=== PATIENT | female | born 1975 | race African-American/Black ===

== ENCOUNTER 2017-02-06 19:37 | Emergency (ER) | payer OTHER ==
[~2017-02-06] VITALS: Ht 170.2 cm; Wt 77.1 kg
[2017-02-06] MEDS ORDERED: NKM (19:58)
[2017-02-06 20:00] VITALS: BP 143/80
[2017-02-06] MEDS ORDERED: SUDAFED 12-HOU120 MG PO (20:20)
[2017-02-06] MEDS ORDERED: CORTISPORIN EAR10 ML LEFT EAR (20:20)
[2017-02-06 20:24] VITALS: BP 148/75
--- NOTE | 2017-02-06 21:45 | Emergency Room Report ---
History of Present Illness General Chief Complaint: Earache Source: Patient Present Illness HPI The patient 42-year-old female presenting with left ear pain. Symptoms began 2 weeks prior for no known reason. It is now described as a 2/10 dull ache and does not radiate. No known provoking or relieving factors. She also describes hearing the sound as "whoosh" in the left ear. She denies any other symptoms including nausea, vomiting, fever, chills, headache, dizziness, blurred vision Allergies: Coded Allergies: No Known Allergies (Unverified , 02/06/17) Patient History Past Medical History: see triage record Pertinent Family History: none Last Menstrual Period: December Reviewed Nursing Documentation: PMH: Agreed, PSxH: Agreed Nursing Documentation-PMH Past Medical History: No Stated History Review of Systems All Other Systems: negative except mentioned in HPI Physical Exam Vital Signs Date Time Temp Pulse Resp B/P Pulse Ox O2 Delivery O2 Flow Rate FiO2 02/06/17 19:54 98.2 78 16 143/80 100 Room Air Sp02 EP Interpretation: reviewed, normal General Appearance: no apparent distress, alert, GCS 15, non-toxic Head: normocephalic, atraumatic Eyes: bilateral eye PERRL, bilateral eye normal inspection ENT: normal pharynx, no angioedema, normal voice, other - L EAC mild white exudate noted. TM intact. No bulging Neck: full range of motion, supple/symm/no masses Musculoskeletal: back normal, gait/station normal, normal range of motion, non- tender Neurologic: alert, oriented x3, responsive, motor strength/tone normal, sensory intact, speech normal Psychiatric: judgement/insight normal, memory normal, mood/affect normal, no suicidal/homicidal ideation Skin: normal color, no rash, warm/dry, well hydrated Lymphatic: no adenopathy Medical Decision Making PA Attestation Dr. Claros is my supervising physician. Patient management was discussed with my supervising physician Diagnostic Impression: Primary Impression: Otitis externa, acute Qualified Codes: H60.502 - Unspecified acute noninfective otitis externa, left ear ER Course The patient is a 42-year-old female presenting with left ear pain and change in hearing Differential diagnosis considered not limited to: Otitis externa, otitis media, Mnire's disease, tympanic membrane rupture, among others Physical exam shows mild white exudate to the external auditory canal. Tympanic membrane is intact. No bulging or erythema. No cervical lymphadenopathy The patient will be discharged home with a prescription for Cortisporin and Sudafed. ER precautions are given. She was told she needs to followup with her primary doctor and obtain referral for ENT and/or blow torch burner Last Vital Signs Date Time Temp Pulse Resp B/P Pulse Ox O2 Delivery O2 Flow Rate FiO2 02/06/17 20:24 98.2 74 18 148/75 100 Room Air Status: improved Disposition: HOME, SELF-CARE Condition: Improved Scripts Pseudoephedrine Hcl (SUDAFED 12-HOUR) 120 Mg Tablet.er 120 MG PO DAILY, #10 TAB Prov: SIVA MOLINA 02/06/17 Neomycin/Polymyxin B Sulf/Hc* (CORTISPORIN EAR SOLUTION*) 10 Ml Solution 4 DROP LEFT EAR QID, #10 ML 0 Refills Prov: SIVA MOLINA 02/06/17 Referrals: [facility] (PCP) Patient Instructions: Otitis Externa Additional Instructions: I discussed my findings with the patient. All questions and concerns have been answered. Treatment and medication compliance have been addressed. I advised the patient that they need to follow up with PMD in 3-5 days. Return to ED if symptoms worsen, new symptoms arise, or if needed for any reason. Patient verbalized understanding of discharge instructions. Please follow up with primary doctor to obtain referral for ENT or blow torch burner SIVA MOLINA Feb 06, 2017 21:45
== END 2017-02-06 20:24 | disposition home or self-care (01) ==
LOC: EMR 20:18
DX: H60.502 Unspecified acute noninfective otitis externa, left ear (principal)
CPT/HCPCS: 99284

== ENCOUNTER 2017-06-10 08:06 | Emergency (ER) | payer OTHER ==
[~2017-06-10] VITALS: Ht 170.2 cm; Wt 79.4 kg
[~2017-06-10 08:06] MED LIST: CORTISPORIN EAR10 ML LEFT EAR; NKM; SUDAFED 12-HOU120 MG PO
[2017-06-10 09:38] VITALS: BP 131/89
[2017-06-10] MEDS ORDERED: IBUPROFEN600 MG ORAL (09:41)
[2017-06-10] MEDS ORDERED: TRAMADOL HCL50 MG ORAL (09:41)
[2017-06-10 10:01] VITALS: BP 131/89
--- NOTE | 2017-06-10 10:03 | Emergency Room Report ---
History of Present Illness General Chief Complaint: Pain Source: Patient Present Illness HPI 42-year-old female presents ED complaining of left hip pain. States pain has been there for approximately 2 months getting progressively worse. Denies trauma. Throbbing, /, nonradiating. Worse with walking, internal/external rotation. Patient states maye 4 years ago she had x-rays of her left hip for similar pain and was told that she arthritis. Patient never did seek followup after that. Patient states the pain did resolve. No other aggravating relieving factors. Denies any other associated symptoms Allergies: Coded Allergies: No Known Allergies (Unverified , 02/06/17) Patient History Past Surgical History: none Pertinent Family History: none Social History: Denies: smoking, alcohol use, drug use Last Menstrual Period: 06/06/17 Now: No Immunizations: UTD Reviewed Nursing Documentation: PMH: Agreed, PSxH: Agreed Nursing Documentation-PMH Past Medical History: No History, Except For Review of Systems All Other Systems: negative except mentioned in HPI Physical Exam Vital Signs Date Time Temp Pulse Resp B/P (MAP) Pulse Ox O2 Delivery O2 Flow Rate FiO2 06/10/17 08:08 98.2 75 18 131/89 100 Room Air Sp02 EP Interpretation: reviewed, normal General Appearance: no apparent distress, alert, GCS 15, non-toxic Head: normocephalic Eyes: bilateral eye normal inspection, bilateral eye PERRL ENT: normal ENT inspection Neck: normal inspection Respiratory: normal inspection Cardiovascular #1: normal inspection Gastrointestinal: normal inspection Rectal: deferred Genitourinary: no CVA tenderness Musculoskeletal: normal range of motion - TTP with internal/external rotation, tender - L hip Neurologic: alert, oriented x3, responsive, motor strength/tone normal, sensory intact, speech normal Psychiatric: normal inspection Skin: normal inspection Lymphatic: normal inspection Medical Decision Making Diagnostic Impression: Primary Impression: Hip osteoarthritis Qualified Codes: M16.12 - Unilateral primary osteoarthritis, left hip ER Course Hospital Course 42-year-old female presents ED complaining of left hip pain Differential diagnoses include: Fracture, dislocation, sprain, contusion Clinical course Patient placed on stretcher. After initial history and physical, I ordered xrays of L hip Xrays prelim read shows no acute fracture/dislocation. however significant joint space narrow suggestive of osteoarthritis I discussed findings with the patient. Initial treatment will include ice, rest , pain medication. Patient will be to followup with her PMD for further options such as physical therapy etc. Patient states she will have her PMD referred her to orthopedics Diagnosis - hip osteoarthritis Stable and discharged to home with prescription for Motrin, Tramadol. apply ice , keep elevated. weight bear as tolerated. Followup with PMD/ortho. Return to ED if symptoms recur or worsen Other X-Ray Diagnostic Results Other X-Ray Diagnostic Results : X-Ray ordered: L hip # of Views/Limited Vs Complete: 2 View Indication: Pain EP Interpretation: Yes Interpretation: no dislocation, no soft tissue swelling, no fractures, other - DJD Impression: Other - osteoarthritis Electronically Signed by: Electronically signed by Marc Yates MD Last Vital Signs Date Time Temp Pulse Resp B/P (MAP) Pulse Ox O2 Delivery O2 Flow Rate FiO2 06/10/17 09:38 98.2 75 18 131/89 100 Room Air Status: improved Disposition: HOME, SELF-CARE Condition: Stable Scripts Tramadol Hcl* (ULTRAM*) 50 Mg Tablet 50 MG ORAL Q6H Y for For Pain, #30 TAB 0 Refills Prov: MARC YATES M.D. 06/10/17 Ibuprofen* (MOTRIN*) 600 Mg Tablet 600 MG ORAL Q8H Y for For Pain, #30 TAB 0 Refills Prov: MARC YATES M.D. 06/10/17 Patient Instructions: Osteoarthritis MARC YATES M.D. Jun 10, 2017 10:03
--- NOTE | 2017-06-11 10:46 | Diagnostic Imaging Report ---
Indication: Reason For Exam: PAIN Technique: 2 views of the left hip Comparison: none Findings: No acute fractures. No dislocations. There are degenerative proliferative changes of the left acetabulum and mild degenerative joint space narrowing Impression: Degenerative changes No acute bony trauma
== END 2017-06-10 10:04 | disposition home or self-care (01) ==
LOC: EMR 09:00
DX: M16.12 Unilateral primary osteoarthritis, left hip (principal)
CPT/HCPCS: 73502; 99284

== ENCOUNTER 2017-10-11 10:29 | Emergency (ER) | payer OTHER ==
[~2017-10-11] VITALS: Ht 170.2 cm; Wt 76.2 kg
[~2017-10-11 10:29] MED LIST changes: +IBUPROFEN600 MG ORAL; +TRAMADOL HCL50 MG ORAL
[2017-10-11 10:50] VITALS: BP 132/84
[2017-10-11 12:14] LABS: BILIRUBIN, URINE NEGATIVE (NEGATIVE); COLOR,URINE PALE YELLOW; GLUCOSE, URINE (UA) NEGATIVE (NEGATIVE); KETONES,URINE NEGATIVE (NEGATIVE); LEUKOCYTE ESTERASE ,URINE NEGATIVE (NEGATIVE); NITRITE,URINE NEGATIVE (NEGATIVE); PH,URINE 7 (4.5-8.0); PROTEIN,URINE NEGATIVE (NEGATIVE); UROBILINOGEN,URINE NORMAL MG/DL (0.0-1.0)
[2017-10-11 12:16] LABS: APPEARANCE,URINE CLEAR
[2017-10-11 12:36] LABS: ANION GAP 9 mmol/L (5-15); BLOOD UREA NITROGEN 10 mg/dL (7-18); CALCIUM 9.2 MG/DL (8.5-10.1); CARBON DIOXIDE 27 MMOL/L (21-32); CHLORIDE 103 MMOL/L (98-107); CREATININE 0.7 MG/DL (0.55-1.30); POTASSIUM 3.6 MMOL/L (3.5-5.1); SODIUM 139 MMOL/L (136-145)
[2017-10-11 12:37] LABS: BASOPHILS % (AUTO) 2.5 % (0.0-2.0); HEMOGLOBIN 14.8 G/DL (12.0-16.0); LYMPHOCYTES % (AUTO) 41.7 % (20.0-45.0); MEAN CORPUSCULAR VOLUME 83 FL (80-99); MONOCYTES % (AUTO) 6.9 % (1.0-10.0); NEUTROPHILS % (AUTO) 46.8 % (45.0-75.0); PLATELET COUNT 356 K/UL (150-450); RED BLOOD COUNT 5.17 M/UL (4.20-5.40); RED CELL DISTRIBUTION WIDTH 12.2 % (11.6-14.8); WHITE BLOOD COUNT 4.5 K/UL (4.8-10.8)
[2017-10-11 12:41] LABS: ALANINE AMINOTRANSFERASE 17 U/L (12-78); ALBUMIN 4.3 G/DL (3.4-5.0); ALKALINE PHOSPHATASE 47 U/L (46-116); ASPARTATE AMINO TRANSFERASE 13 U/L (15-37); BILIRUBIN,TOTAL 0.4 MG/DL (0.2-1.0); CHOLESTEROL 209 MG/DL (< 200); HDL CHOLESTEROL 77 MG/DL (40-60); TRIGLYCERIDES 64 MG/DL (30-150)
--- NOTE | 2017-10-11 13:22 | Emergency Room Report ---
History of Present Illness General Chief Complaint: Headache Source: Patient Present Illness HPI The patient states that she has been getting recurrent sharp pains in her head. She states she notices the symptoms at nighttime when she is trying to go to sleep. She states the pain is sharp and radiates to her head. She states during the day she feels fine when she is at work. She states she believes this is because she is distracted. She states that then at night she will lay down and have these symptoms. She states she also got some pain in her right wrist and right chest and left leg last night. She states she is afraid to go to sleep because she is afraid she will . She is concerned that she is going to have a stroke. She denies weakness. She denies tingling or numbness. She denies blurry vision. She denies neck pain. She denies recent illness. She denies trauma. She denies fever or chills. She denies nausea or vomiting. She's had no other symptoms. Allergies: Coded Allergies: No Known Allergies (Unverified , 02/06/17) Patient History Past Medical History: see triage record, migraines Social History: Denies: smoking, alcohol use, drug use Last Menstrual Period: September Reviewed Nursing Documentation: PMH: Agreed; PSxH: Agreed Nursing Documentation-PMH Past Medical History: No Stated History Hx Neurological Problems: Yes - MIGRAINE Review of Systems All Other Systems: negative except mentioned in HPI Physical Exam Vital Signs Date Time Temp Pulse Resp B/P (MAP) Pulse Ox O2 Delivery O2 Flow Rate FiO2 10/11/17 10:40 98.4 87 18 132/84 100 Room Air 98.4 Sp02 EP Interpretation: reviewed, normal General Appearance: no apparent distress, alert, GCS 15, non-toxic Head: normocephalic, atraumatic Eyes: bilateral eye normal inspection, bilateral eye PERRL ENT: normal ENT inspection, hearing grossly normal, normal pharynx, no angioedema, normal voice, TMs + canals normal, uvula midline, moist mucus membranes Neck: full range of motion, supple/symm/no masses Respiratory: chest non-tender, lungs clear, normal breath sounds, speaking full sentences Cardiovascular #1: regular rate, rhythm, no edema Gastrointestinal: normal bowel sounds, non tender, soft, non-distended, no guarding, no rebound Rectal: deferred Musculoskeletal: back normal, gait/station normal, normal range of motion, non- tender Neurologic: alert, oriented x3, responsive, motor strength/tone normal, sensory intact, speech normal Psychiatric: judgement/insight normal, memory normal, mood/affect normal, no suicidal/homicidal ideation Skin: normal color, no rash, warm/dry, well hydrated Medical Decision Making Diagnostic Impression: Primary Impression: Headache ER Course This patient has symptoms that do not fall into any specific action or category. She has had sharp pains in her head and random pains occasionally in her body. She does not have these symptoms during the day. Possibly these could be migraines. The patient is very distraught and seems anxious. Although I had very low suspicion for any concerning etiology and I suspect that this is anxiety related, I did obtain basic laboratory workup to include a CBC, CMP, cardiac enzymes and urinalysis. These were all unremarkable. I also obtained a CT of the head which is also unremarkable. I educated the patient that I did not identify an emergency medical condition. The patient is instructed to follow-up with her primary care physician for further evaluation. The patient is given close return precautions and follow-up instructions. Laboratory Tests Test 10/11/17 12:05 10/11/17 12:12 Urine Color Pale yellow Urine Appearance Clear Urine pH 7 (4.5-8.0) Urine Specific [place] 1.010 (1.005-1.035) Urine Protein Negative (NEGATIVE) Urine Glucose (UA) Negative (NEGATIVE) Urine Ketones Negative (NEGATIVE) Urine Occult Blood Negative (NEGATIVE) Urine Nitrite Negative (NEGATIVE) Urine Bilirubin Negative (NEGATIVE) Urine Urobilinogen Normal MG/DL (0.0-1.0) Urine Leukocyte Esterase Negative (NEGATIVE) White Blood Count 4.5 K/UL (4.8-10.8) L Red Blood Count 5.17 M/UL (4.20-5.40) Hemoglobin 14.8 G/DL (12.0-16.0) Hematocrit 43.0 % (37.0-47.0) Mean Corpuscular Volume 83 FL (80-99) Mean Corpuscular Hemoglobin 28.5 PG (27.0-31.0) Mean Corpuscular Hemoglobin Concent 34.3 G/DL (32.0-36.0) Red Cell Distribution Width 12.2 % (11.6-14.8) Platelet Count 356 K/UL (150-450) Mean Platelet Volume 6.1 FL (6.5-10.1) L Neutrophils (%) (Auto) 46.8 % (45.0-75.0) Lymphocytes (%) (Auto) 41.7 % (20.0-45.0) Monocytes (%) (Auto) 6.9 % (1.0-10.0) Eosinophils (%) (Auto) 2.0 % (0.0-3.0) Basophils (%) (Auto) 2.5 % (0.0-2.0) H Prothrombin Time 10.0 SEC (9.30-11.50) Prothrombin Time INR 1.0 (0.9-1.1) PTT 26 SEC (23-33) Sodium Level 139 MMOL/L (136-145) Potassium Level 3.6 MMOL/L (3.5-5.1) Chloride Level 103 MMOL/L (98-107) Carbon Dioxide Level 27 MMOL/L (21-32) Anion Gap 9 mmol/L (5-15) Blood Urea Nitrogen 10 mg/dL (7-18) Creatinine 0.7 MG/DL (0.55-1.30) Estimate Glomerular Filtration Rate > 60 mL/min (>60) Glucose Level 112 MG/DL (74-106) H Calcium Level 9.2 MG/DL (8.5-10.1) Total Bilirubin 0.4 MG/DL (0.2-1.0) Aspartate Amino Transferase (AST) 13 U/L (15-37) L Alanine Aminotransferase (ALT) 17 U/L (12-78) Alkaline Phosphatase 47 U/L (46-116) Troponin I 0.000 ng/mL (0.000-0.056) Total Protein 8.5 G/DL (6.4-8.2) H Albumin 4.3 G/DL (3.4-5.0) Globulin 4.2 g/dL Albumin/Globulin Ratio 1.0 (1.0-2.7) Triglycerides Level 64 MG/DL (30-150) Cholesterol Level 209 MG/DL (< 200) H LDL Cholesterol 126 mg/dL (<100) H HDL Cholesterol 77 MG/DL (40-60) H Cholesterol/HDL Ratio 2.7 (3.3-4.4) L Human Chorionic Gonadotropin, Qual Negative EKG Diagnostic Results Rate: normal Rhythm: NSR ST Segments: no acute changes Rhythm Strip Diag. Results EP Interpretation: yes Rate: 70's Rhythm: NSR, no PVC's, no ectopy CT/MRI/US Diagnostic Results CT/MRI/US Diagnostic Results : Imaging Test Ordered: CT head Impression No bleed, mass effect, edema or acute findings identified. See official report. Last Vital Signs Date Time Temp Pulse Resp B/P (MAP) Pulse Ox O2 Delivery O2 Flow Rate FiO2 10/11/17 10:50 98.4 87 18 132/84 100 Room Air 98.4 Status: improved Disposition: HOME, SELF-CARE Condition: Improved Referrals: [facility] (PCP) Patient Instructions: General Headache Without Cause THERESA DEL RIO D.O. Oct 11, 2017 13:22
[2017-10-11 14:10] VITALS: BP 116/70
--- NOTE | 2017-10-12 09:37 | Diagnostic Imaging Report ---
Indication: Headache Technique: Continuous helical CT scanning of the head was performed utilizing automated exposure control without intravenous contrast material. Axial and coronal reconstructions were obtained. Comparison: None CT dose: Total DLP 1290 mGycm; CTDI vol 70.4 mGy Findings: There is no acute intracranial hemorrhage, mass effect or cortical edema. The ventricles, cisterns and sulci are within normal limits. The posterior fossa and fourth ventricle are unremarkable. Sellar and suprasellar regions are grossly unremarkable. Visualized mastoid air cells and paranasal sinuses are unremarkable. No focal lesions of the bony calvarium or soft tissues of the scalp are seen. Impression: No evidence of acute intracranial hemorrhage, mass effect or cortical edema. MRI may be obtained for more sensitive evaluation as clinically indicated. The CT scanner at [facility] is accredited by the [employer] and the scans are performed using protocols designed to limit radiation exposure to as low as reasonably achievable to attain images of sufficient resolution adequate for diagnostic evaluation.
== END 2017-10-11 14:14 | disposition home or self-care (01) ==
LOC: EMR 11:11
DX: R51 Headache (principal)
CPT/HCPCS: 36415; 70450; 80053; 80061; 81003; 84484; 84703; 85025; 85610; 85730; 93005; 99284

== ENCOUNTER 2017-12-02 11:47 | Emergency (ER) | payer OTHER ==
[~2017-12-02] VITALS: Ht 170.2 cm; Wt 80.7 kg
--- NOTE | 2017-12-02 12:14 | Emergency Room Report ---
History of Present Illness General Chief Complaint: Abdominal Pain Source: Patient Present Illness HPI 42-year-old female presents with acute onset of right lower quadrant pain at 3 AM, possibly 9 hours ago. Patient states pain was 10 out of 10, maximum at onset. Was associated with significant belching, were patient continued to burp repeatedly. No associated nausea, vomiting, diarrhea. Patient has had 2 bowel movements since. Previous surgical history includes myomectomy but no other surgery. Denies history of gallstones, kidney stones. Endorses polyuria , but without dysuria. Denies any other medical problems. Has not taken any medication for pain. She got up and tried to go to work but was still having the pain subsided to come to ER. Allergies: Coded Allergies: No Known Allergies (Unverified , 02/06/17) Patient History Past Medical History: none Past Surgical History: other - myeomectomy Pertinent Family History: none Social History: Denies: smoking, alcohol use, drug use Last Menstrual Period: 10/28/17 Now: No Immunizations: UTD Reviewed Nursing Documentation: PMH: Agreed; PSxH: Agreed Nursing Documentation-PMH Past Medical History: No History, Except For Hx Gastrointestinal Problems: Yes - GERD Hx Neurological Problems: Yes - MIGRAINE Review of Systems All Other Systems: negative except mentioned in HPI Physical Exam Vital Signs Date Time Temp Pulse Resp B/P (MAP) Pulse Ox O2 Delivery O2 Flow Rate FiO2 12/02/17 11:57 99.0 83 16 127/82 100 Room Air 99.0 Sp02 EP Interpretation: reviewed, normal General Appearance: normal inspection, well appearing, no apparent distress, alert, GCS 15, non-toxic Head: normocephalic, atraumatic Eyes: bilateral eye PERRL, bilateral eye EOMI ENT: normal ENT inspection, hearing grossly normal, normal pharynx, no angioedema, normal voice, TMs + canals normal, uvula midline, moist mucus membranes Neck: normal inspection, full range of motion, supple, thyroid normal, no meningismus, no bony tend Respiratory: normal inspection, lungs clear, normal breath sounds, no rhonchi, no respiratory distress, no retraction, no accessory muscle use, no wheezing, speaking full sentences Cardiovascular #1: regular rate, rhythm, no edema, no JVD, normal capillary refill Gastrointestinal: normal inspection, normal bowel sounds, non tender, soft, no mass, no peritonitis, non-distended, no guarding, no hernia, no pulsatile mass Genitourinary: no CVA tenderness Musculoskeletal: normal inspection, back normal, normal range of motion, no calf tenderness, pelvis stable, Patti's Sign negative Neurologic: normal inspection, alert, oriented x3, responsive, buckle stringer III-XII nml as tested, motor strength/tone normal, cerebellar normal, normal gait, speech normal Psychiatric: normal inspection, judgement/insight normal, mood/affect normal, no suicidal/homicidal ideation, no delusions Skin: normal inspection, normal color, no rash Lymphatic: normal inspection, no adenopathy Medical Decision Making Diagnostic Impression: Primary Impression: Fibroids Qualified Codes: D25.9 - Leiomyoma of uterus, unspecified ER Course VSS, afebrile no ttp even on deep palpation of RLQ Given pain maximum at onset, possible ovarian cyst rupture DDx also includes appy, jerilyn, colitis, gastroenteritis Labs unremarkable for acute process to explain symptoms On verbal report from US tech - multiple fibroids, large right ovarian cyst Possible pain d/t ruptured cyst +/- multiple fibroids Will advise PMD followup for multiple fibroids ER course: Patient has remained stable during ED stay. Disposition: Patient is to be discharged to home. Prescriptions given are motrin PRN Patient is instructed to follow up with their primary care doctor within 5 days. Strict return precautions discussed with patient such as fever, chills, worsening/severe pain, nausea, vomiting, which may indicate severe illness. Patient verbalizes understanding and agrees with plan. Please note that this Emergency Department Report was dictated using [employer] specialist technology software, occasionally this can lead to erroneous entry secondary to interpretation by the dictation equipment Last Vital Signs Date Time Temp Pulse Resp B/P (MAP) Pulse Ox O2 Delivery O2 Flow Rate FiO2 12/02/17 11:57 99.0 83 16 127/82 100 Room Air 99.0 Status: improved Disposition: HOME, SELF-CARE MARIEL MAY M.D. Dec 02, 2017 12:14
[2017-12-02] MEDS ORDERED: Ketorolac 30mg Inj IV ONE (12:15)
[2017-12-02 12:30] LABS: APPEARANCE,URINE CLEAR; BILIRUBIN, URINE NEGATIVE (NEGATIVE); COLOR,URINE PALE YELLOW; GLUCOSE, URINE (UA) NEGATIVE (NEGATIVE); KETONES,URINE NEGATIVE (NEGATIVE); LEUKOCYTE ESTERASE ,URINE NEGATIVE (NEGATIVE); NITRITE,URINE NEGATIVE (NEGATIVE); PH,URINE 8 (4.5-8.0); PROTEIN,URINE NEGATIVE (NEGATIVE); UROBILINOGEN,URINE NORMAL MG/DL (0.0-1.0)
[2017-12-02 12:42] VITALS: BP 113/69
[2017-12-02 12:58] LABS: BASOPHILS % (AUTO) 2.6 % (0.0-2.0); EOSINOPHILS % (AUTO) 1.5 % (0.0-3.0); HEMATOCRIT 39.1 % (37.0-47.0); HEMOGLOBIN 12.6 G/DL (12.0-16.0); LYMPHOCYTES % (AUTO) 51.1 % (20.0-45.0); MEAN CORPUSCULAR VOLUME 82 FL (80-99); MONOCYTES % (AUTO) 8.1 % (1.0-10.0); NEUTROPHILS % (AUTO) 36.7 % (45.0-75.0); PLATELET COUNT 351 K/UL (150-450); RED BLOOD COUNT 4.76 M/UL (4.20-5.40); RED CELL DISTRIBUTION WIDTH 11.9 % (11.6-14.8); WHITE BLOOD COUNT 4.5 K/UL (4.8-10.8)
[2017-12-02 13:26] LABS: ANION GAP 10 mmol/L (5-15); BLOOD UREA NITROGEN 10 mg/dL (7-18); CALCIUM 8.8 MG/DL (8.5-10.1); CARBON DIOXIDE 25 MMOL/L (21-32); CHLORIDE 102 MMOL/L (98-107); CREATININE 0.8 MG/DL (0.55-1.30); POTASSIUM 3.6 MMOL/L (3.5-5.1); SODIUM 137 MMOL/L (136-145)
[2017-12-02 13:30] LABS: ALANINE AMINOTRANSFERASE 27 U/L (12-78); ALBUMIN 3.8 G/DL (3.4-5.0); ALKALINE PHOSPHATASE 44 U/L (46-116); ASPARTATE AMINO TRANSFERASE 16 U/L (15-37); BILIRUBIN,TOTAL 0.2 MG/DL (0.2-1.0)
[2017-12-02] MEDS ORDERED: IBUPROFEN600 MG ORAL (13:42)
[2017-12-02 14:14] VITALS: BP 113/69
--- NOTE | 2017-12-02 15:55 | Diagnostic Imaging Report ---
Indication: Pelvic pain, right lower quadrant pain, negative test. History of myomectomy Technique: Transabdominal and transvaginal images Comparison: none Findings: It is measures 11 cm length by 6.1 cm AP. Endometrium measures 6 mm in thickness. Multiple myometrial subserosal fibroids are demonstrated, largest in the upper uterine segment measuring 4.2 cm in diameter. Left ovary measures 2.7 cm in length. Right ovary measures 5.5 cm in length. A lesion is seen in the right adnexa measuring 4 cm with appearance consistent with simple cyst. There is a small amount of free cul-de-sac fluid Impression: Multiple uterine fibroids, consistent with known history of such Simple cyst in the right adnexa is almost certainly benign. In a woman of reproductive age, no imaging follow-up is required. In a post-menopausal woman, this should be followed yearly with ultrasound. Recommend pelvic ultrasound in 12 months. Free cul-de-sac fluid, presumably physiologic Recommendations for adnexal cyst follow-up per Society of Radiologists in Ultrasound 2009 consensus statement on management of asymptomatic and ovarian and other adnexal cysts (Baeza et al., Radiology 2010 256: 943-54).
== END 2017-12-02 14:16 | disposition home or self-care (01) ==
LOC: EMR 13:03
DX: D25.2 Subserosal leiomyoma of uterus (principal); K21.9 Gastro-esophageal reflux disease without esophagitis
CPT/HCPCS: 36415; 76830; 76856; 80053; 81003; 81025; 83690; 85025; 96374; 99283; J1885

== ENCOUNTER 2019-05-31 07:44 | Emergency (ER) | payer OTHER ==
[~2019-05-31] VITALS: Ht 170.2 cm; Wt 77.1 kg
--- NOTE | 2019-05-31 08:04 | NUR ---
ED Nurse Note: Patient walked into ED from home c/o pain left lower back radiating to her left thigh 10/10 since last night. Patient denies injury. Placed patient in hospital gown.
[2019-05-31 08:06] VITALS: BP 121/74
--- NOTE | 2019-05-31 08:11 | NUR ---
ED Nurse Note: ERMD at bedside
[2019-05-31] MEDS ORDERED: Ketorolac 60mg Inj IM ONE (08:15)
--- NOTE | 2019-05-31 08:17 | Emergency Room Report ---
History of Present Illness General Chief Complaint: Lower Back Pain or Injury Source: Patient Present Illness HPI The patient slept on a couch 2 nights ago. After waking up she has had pain in her left lower back that radiates down into her hip and leg area. She also has a history of degenerative arthritis of her left hip. She tried taking 2 Motrin yesterday and they helped a little bit. The pain comes in spasms. When it does hit it is 10/10. She feels it radiating down to her left leg. She denies any dysuria but had difficulty sitting on the toilet to urinate today. She does not believe she is her last menstruation was May 05. Patient has no oncologic problems not diabetic, no blood thinners, no IV drug use. No fevers, chills, chest pain, palpitations, nausea, vomiting, diarrhea, dysuria , abdominal pain, shortness of breath, rashes, stress, headache. She states it was suggested she have a hip replacement. 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 Now: No Reviewed Nursing Documentation: PMH: Agreed; PSxH: Agreed Nursing Documentation-PMH Past Medical History: No History, Except For Hx Gastrointestinal Problems: Yes - GERD Hx Neurological Problems: Yes - MIGRAINE Review of Systems All Other Systems: negative except mentioned in HPI Physical Exam Vital Signs Date Time Temp Pulse Resp B/P (MAP) Pulse Ox O2 Delivery O2 Flow Rate FiO2 05/31/19 07:49 97.9 100 18 121/74 (90) 97 Room Air Sp02 EP Interpretation: reviewed, normal General Appearance: well appearing, no apparent distress, GCS 15 Head: normocephalic Eyes: bilateral eye normal inspection, bilateral eye PERRL, bilateral eye EOMI ENT: moist mucus membranes Neck: full range of motion, supple Respiratory: lungs clear Cardiovascular #1: regular rate, rhythm Cardiovascular #2: 2+ radial (R), 2+ dorsalis pedis (L) Gastrointestinal: normal inspection Genitourinary: no CVA tenderness Musculoskeletal: gait/station normal, digits/nails normal, no calf tenderness, tenderness - lumbar area L sided - paraspinous muscles, no bone tenderness. SLR causes muscle spasms, not radiate to leg Neurologic: alert, motor strength/tone normal, DTRs symmetric, oriented x3, sensory intact, cerebellar normal Psychiatric: mood/affect normal Skin: normal color, no rash, warm/dry Medical Decision Making Diagnostic Impression: Primary Impression: Low back strain Qualified Codes: S39.012A - Strain of muscle, fascia and tendon of lower back , initial encounter Additional Impression: Hip osteoarthritis Qualified Codes: M16.12 - Unilateral primary osteoarthritis, left hip ER Course With low back pain without trauma and no red flag symptoms. Imaging is not indicated at this time. She has muscle spasm. This is also set up in part by the osteoarthritis. The patient will receive a shot of Toradol and Tylenol. She drove herself here. Urinalysis will be checked. Urinalysis negative Patient improved with treatment. Still with pain but improved. Discussed assessment and findings with patient. Discussed treatment plan. Patient stable for outpatient observation and treatment. Laboratory Tests Test 05/31/19 08:24 Urine Color Pale yellow Urine Appearance Clear Urine pH 5 (4.5-8.0) Urine Specific [place] 1.015 (1.005-1.035) Urine Protein 2+ (NEGATIVE) H Urine Glucose (UA) Negative (NEGATIVE) Urine Ketones Negative (NEGATIVE) Urine Blood Negative (NEGATIVE) Urine Nitrite Negative (NEGATIVE) Urine Bilirubin Negative (NEGATIVE) Urine Urobilinogen Normal MG/DL (0.0-1.0) Urine Leukocyte Esterase Negative (NEGATIVE) Urine RBC 0 /HPF (0 - 2) Urine WBC 0 /HPF (0 - 2) Urine Squamous Epithelial Cells Occasional /LPF Urine Bacteria None /HPF (NONE) Urine HCG, Qualitative Negative (NEGATIVE) Last Vital Signs Date Time Temp Pulse Resp B/P (MAP) Pulse Ox O2 Delivery O2 Flow Rate FiO2 05/31/19 09:39 98.0 101 18 125/75 98 Room Air Status: improved Disposition: HOME, SELF-CARE Condition: Improved Scripts Tramadol Hcl* (ULTRAM*) 50 Mg Tablet 50 MG ORAL Q6H PRN for For Pain, #6 TAB 0 Refills Prov: Samym Mojica MD 05/31/19 Methocarbamol* (ROBAXIN-500*) 500 Mg Tablet 500 MG ORAL TID PRN for For Pain, #10 TAB 0 Refills Prov: Sammy Mojica MD 05/31/19 Ibuprofen* (MOTRIN*) 600 Mg Tablet 600 MG ORAL Q6H PRN for For Pain, #20 TAB 0 Refills Prov: Sammy Mojica MD 05/31/19 Sammy Mojica MD May 31, 2019 08:17
[2019-05-31] MEDS ORDERED: ROBAXIN-500MG ORAL (08:19)
[2019-05-31] MEDS ORDERED: IBUPROFEN600 MG ORAL (08:19)
[2019-05-31] MEDS ORDERED: TRAMADOL HCL50 MG ORAL (08:19)
--- NOTE | 2019-05-31 08:26 | NUR ---
ED Nurse Note: Urine sample sent down to lab.
[2019-05-31 08:38] LABS: APPEARANCE,URINE CLEAR; BILIRUBIN, URINE NEGATIVE (NEGATIVE); COLOR,URINE PALE YELLOW; GLUCOSE, URINE (UA) NEGATIVE (NEGATIVE); KETONES,URINE NEGATIVE (NEGATIVE); LEUKOCYTE ESTERASE ,URINE NEGATIVE (NEGATIVE); NITRITE,URINE NEGATIVE (NEGATIVE); PH,URINE 5 (4.5-8.0); PROTEIN,URINE 2+ (NEGATIVE); UROBILINOGEN,URINE NORMAL MG/DL (0.0-1.0)
[2019-05-31 09:39] VITALS: BP 125/75
--- NOTE | 2019-05-31 09:39 | NUR ---
ER DISCHARGE NOTE: Patient is cleared to be discharged per ERMD, pt is aox4, on room air, with stable vital signs. pt was given dc and prescription instructions, pt was able to verbalize understanding, pt id band removed without complications. pt is able to ambulate with steady gait. pt took all belongings.
== END 2019-05-31 09:39 | disposition home or self-care (01) ==
LOC: EMR 08:28
DX: S39.012A Strain of muscle, fascia and tendon of lower back, initial encounter (principal); M16.12 Unilateral primary osteoarthritis, left hip; X58.XXXA Exposure to other specified factors, initial encounter; Y92.9 Unspecified place or not applicable; K21.9 Gastro-esophageal reflux disease without esophagitis
CPT/HCPCS: 81003; 81025; 96372; Z7502; 99283

== ENCOUNTER 2019-06-02 07:16 | Emergency (ER) | payer OTHER ==
[~2019-06-02] VITALS: Ht 170.2 cm; Wt 77.1 kg
[~2019-06-02 07:16] MED LIST changes: +ROBAXIN-500MG ORAL
[2019-06-02 07:27] VITALS: BP 139/79
--- NOTE | 2019-06-02 07:41 | Emergency Room Report ---
History of Present Illness General Chief Complaint: Pain Source: Patient Present Illness HPI Patient represents with continued left lumbar and hip pain. She was evaluated 2 days ago. She was prescribed muscle relaxants tramadol and Motrin. She claims she is taking those medications at this time without any relief. Is worse when she gets up in the morning and she has muscle spasms continuing. She denies any dysuria fevers or chills. The pain is rated 10/10. This began when she slipped on the couch instead of her bed. Please refer to the prior evaluation and work-up. Urinalysis was unremarkable. No fevers, chills, sore throat, chest pain, palpitations, nausea, vomiting, diarrhea, dysuria, abdominal pain, shortness of breath, rashes, visual changes, dizziness, headache. No blood thinners, oncologic problems, IV drug abuse, trauma The pain is causing anxiety that she cannot do her job. 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 Last Menstrual Period: CURRENTLY ON HER PERIOD Now: No Reviewed Nursing Documentation: PMH: Agreed; PSxH: Agreed Nursing Documentation-PMH Past Medical History: No History, Except For Hx Gastrointestinal Problems: Yes - GERD Hx Neurological Problems: Yes - MIGRAINE Review of Systems All Other Systems: negative except mentioned in HPI Physical Exam Vital Signs Date Time Temp Pulse Resp B/P (MAP) Pulse Ox O2 Delivery O2 Flow Rate FiO2 06/02/19 07:20 97.9 99 20 139/79 (99) 99 Room Air Sp02 EP Interpretation: reviewed, normal General Appearance: well appearing, GCS 15, non-toxic, mild distress - due to pain Head: normocephalic, atraumatic Eyes: bilateral eye normal inspection, bilateral eye PERRL, bilateral eye EOMI ENT: moist mucus membranes Neck: full range of motion, supple Respiratory: lungs clear, normal breath sounds Cardiovascular #1: regular rate, rhythm Cardiovascular #2: 2+ radial (R) Gastrointestinal: normal inspection, normal bowel sounds, non tender, no mass, non-distended Musculoskeletal: normal range of motion, digits/nails normal, no calf tenderness, gait/station normal, tender - Lumbar area with muscle spasm left side, other - Straight leg raise negative bilaterally but hip pain on the left Neurologic: alert, motor strength/tone normal, DTRs symmetric, oriented x3, sensory intact, cerebellar normal, speech normal Psychiatric: anxious Reflexes: 2+ knee (R), 2+ knee (L), 2+ ankle (R), 2+ ankle (L) Skin: no rash, warm/dry Medical Decision Making Diagnostic Impression: Primary Impression: Low back strain Qualified Codes: S39.012A - Strain of muscle, fascia and tendon of lower back , initial encounter Additional Impression: Hip osteoarthritis Qualified Codes: M16.12 - Unilateral primary osteoarthritis, left hip ER Course Patient represents with increased back pain not helped by outpatient medication. Differential includes muscle spasm, hip osteoarthritis, lumbar strain amongst others. At this time CT of the lumbar spine and hip are indicated. Patient will receive a shot of Toradol and Tylenol. She drove herself here. No red flag symptoms signs or findings. Lumbar CT negative. Hip CT with osteoarthritis. Patient resting comfortably supine. She states there is no change in the pain at this time. When she gets up she tries to move about and has muscle spasms. Discussed limitation of treatment due to her driving herself. Discussed the possibility of admission for intractable pain. She declines this. Patient frustrated over lack of relief of pain. Discussed treatment plan with patient with increased analgesia nausea. Also discussed the importance of following up with your doctor and arranging physical therapy. She states she has an appointment with her physician at 130 this afternoon. Patient stable for outpatient observation and treatment. CT/MRI/US Diagnostic Results CT/MRI/US Diagnostic Results #1: Imaging Test Ordered: L hip Impression Osteoarthritis left hip CT/MRI/US Diagnostic Results #2: Imaging Test Ordered: LS spine Impression No significant abnormalities Last Vital Signs Date Time Temp Pulse Resp B/P (MAP) Pulse Ox O2 Delivery O2 Flow Rate FiO2 06/02/19 10:21 97.9 20 139/79 99 Room Air 06/02/19 07:20 99 Status: improved Disposition: HOME, SELF-CARE Condition: Improved Scripts Oxycodone/Acetaminophen 5-325* (PERCOCET 5-325 MG TABLET*) 1 Each Tablet 1 TAB ORAL Q6H PRN for For Pain, #12 TAB Prov: Sammy Mojica MD 06/02/19 Referrals: [facility],REFERR[facility] (PCP) Sammy Mojica MD Jun 02, 2019 07:41
[2019-06-02] MEDS ORDERED: Acetaminophen 500mg (ES) tab PO ONE (07:45)
[2019-06-02] MEDS ORDERED: Ketorolac 30mg Inj IM ONE (07:45)
--- NOTE | 2019-06-02 09:01 | Diagnostic Imaging Report ---
Indication: Continued left hip and lumbar pain for several days, with no relief from medications, associated muscle spasm Technique: Noncontrast spiral acquisitions obtained through the left hip and pelvis Multiplanar reconstructions were generated. Total dose length product 1067 mGycm. CTDIvol(s) 30 mGy. Radiation dose was minimized using automated exposure control Comparison: Reference made to left hip radiograph dated 06/10/2017 Findings: No acute fractures are evident. Bony alignment is normal. There are degenerative changes of the left hip, with mild narrowing of the hip joint, mild proliferative changes, and marginal subchondral cysts in the femoral head. There is a small sclerotic lesion in the right acetabulum, presumably a bone island. Mild degenerative proliferative changes of the right hip are also noted. There is a small sclerotic lesion in the posterior medial right iliac wing. This may represent a small bone infarct versus a bone island. The uterus is enlarged, demonstrates multiple isoattenuating masses.. The pelvic viscera are otherwise unremarkable. No evidence of superficial soft tissue contusion Impression: No evidence of acute bony or soft tissue trauma. Mild degenerative changes of the hips, left greater than right Enlarged fibroid uterus The CT scanner at [facility] is accredited by the [employer] and the scans are performed using protocols designed to limit radiation exposure to as low as reasonably achievable to attain images of sufficient resolution adequate for diagnostic evaluation.
--- NOTE | 2019-06-02 09:03 | Diagnostic Imaging Report ---
Indications: Continued left lumbar and hip pain for over 2 days, refractory to medications Technique: Spiral acquisitions obtained through the lumbar spine. Multiplanar reconstructions were generated. No IV contrast utilized. Total dose length product 570 mGycm. CTDIvol(s) 15 mGy. Dose reduction achieved using automated exposure control Comparison: none Findings: Bony alignment is normal. Vertebral body heights are preserved. The disc spaces are preserved. No acute fractures. No dislocations. No significant disc bulge or protrusion, spinal stenosis, or neural foraminal stenosis demonstrated. The included extraspinal soft tissues are significant for the presence of an enlarged uterus, better seen on pelvic CT performed at same time. Impression: No acute bony trauma Enlarged fibroid uterus incidentally noted The CT scanner at [facility] is accredited by the [employer] and the scans are performed using protocols designed to limit radiation exposure to as low as reasonably achievable to attain images of sufficient resolution adequate for diagnostic evaluation.
[2019-06-02] MEDS ORDERED: PERCOCET 5-3251 EACH ORAL (10:12)
[2019-06-02 10:21] VITALS: BP 139/79
== END 2019-06-02 10:20 | disposition home or self-care (01) ==
LOC: EMR 07:29
DX: S39.012A Strain of muscle, fascia and tendon of lower back, initial encounter (principal); M16.12 Unilateral primary osteoarthritis, left hip; X58.XXXA Exposure to other specified factors, initial encounter; Y92.9 Unspecified place or not applicable; K21.9 Gastro-esophageal reflux disease without esophagitis
CPT/HCPCS: 72131; 73700; 96372; J1885; Z7502; 99284

== ENCOUNTER 2020-06-30 10:41 | Emergency (ER) | payer MEDICAID, OTHER ==
[~2020-06-30] VITALS: Ht 170.2 cm; Wt 81.6 kg
[~2020-06-30 10:41] MED LIST changes: +NITROFURANTOIN100 M2 ORAL; +PERCOCET 5-3251 EACH ORAL; +PHENAZOPYRIDIN100 MG ORAL
--- NOTE | 2020-06-30 10:55 | NUR ---
ED Nurse Note: pt presents to ED c/o cough x 3 days. pt states that when she talks, she cannot finish a sentence before she begins coughing. she reports a (-) COVID test from 06/17, states she has been taking mucinex and nyquil for symptoms. last took nyquil at around 0600 today. pt is noted to have O2 saturation WNL, coughing during assessment.
[2020-06-30 10:56] VITALS: BP 148/89
--- NOTE | 2020-06-30 11:05 | Emergency Room Report ---
History of Present Illness General Chief Complaint: Upper Respiratory Illness Source: Patient Present Illness HPI Disclaimer: Please note that this report is being documented using DRAGON technology. This can lead to erroneous entry secondary to incorrect interpretation by the dictating instrument. HPI: 45-year-old female presents for evaluation of cough. Symptoms present for the past 3 days. Reports episodes of "coughing fits" that she cannot control. They seem to come and go. Triggered by deep inspiration. Reports increased mu cus production. Denies fever but reports some chills. Denies sore throat, nasal congestion, ear pain, nausea, vomiting, diarrhea. No known sick contacts. Last COVID-19 test was 05/18 resulted negative. Did not receive a flu shot this year. 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 EOMI. Resp: Normal work of breathing. Intermittent cough during exam. No crackles. No wheezing. Skin: Intact. No abrasions, laceration or rash over the exposed skin MSK: Normal tone and bulk. Moving all extremities. No obvious deformity. Neuro: Awake and alert. Mentating appropriately Medical Decision Making Diagnostic Impression: Primary Impression: Cough ER Course 45-year-old female presents for evaluation of 3 days cough. Differential includes was not limited to pneumonia, bronchitis, viral syndrome, COVID-19 infection, influenza among others. X-ray obtained shows no infiltrates or other abnormalities. Likely a viral syndrome, possibly COVID-19. Recommended isolation and retesting. The patient agrees to this. Discharged with antitussive medication. Instructed to return with new or worsening symptoms. She understands and agrees with this treatment plan. Chest X-Ray Diagnostic Results Chest X-Ray Diagnostic Results : Chest X-Ray Ordered: Yes # of Views/Limited/Complete: 1 View Indication: Other - Cough EP Interpretation: Yes Interpretation: no consolidation, no effusion, no pneumothorax, no acute cardiopulmonary disease Impression: No acute disease Electronically Signed by: Electronically signed by Dr. Cabrera Jack MD Last Vital Signs Date Time Temp Pulse Resp B/P (MAP) Pulse Ox O2 Delivery O2 Flow Rate FiO2 06/30/20 10:56 99.1 18 148/89 97 Room Air 06/30/20 10:56 87 Disposition: HOME, SELF-CARE Condition: Stable Scripts Promethazine/Dextromethorphan (Promethazine-Dm Syrup) 473 Ml Syrup 15 ML PO BID for 5 Days, #110 ML Prov: Cabrera Jack MD 06/30/20 Cabrera Jack MD Jun 30, 2020 11:05
--- NOTE | 2020-06-30 11:53 | Diagnostic Imaging Report ---
Indication: Cough Technique: XRAY Chest 1v Comparison: None Findings: Heart size and mediastinal contours are within normal limits for AP technique. There is no focal airspace consolidation, pneumothorax or pleural effusion. Osseous structures demonstrate no acute abnormality. Impression: No radiographic evidence of acute cardiopulmonary disease. Specifically, no focal airspace opacity appreciated.
[2020-06-30] MEDS ORDERED: PROMETHAZINE-D473 M1 PO (11:57)
[2020-06-30 12:15] VITALS: BP 148/89
== END 2020-06-30 12:15 | disposition home or self-care (01) ==
LOC: EMR 11:50
DX: R05 Cough (principal)
CPT/HCPCS: 71045; Z7502; 99283

== ENCOUNTER 2020-08-07 07:10 | Emergency (ER) | payer MEDICAID ==
[~2020-08-07] VITALS: Ht 170.2 cm; Wt 68.0 kg
[~2020-08-07 07:10] MED LIST changes: +PROMETHAZINE-D473 M1 PO
[2020-08-07 07:21] VITALS: BP 117/78
[2020-08-07 07:39] VITALS: BP 117/78
--- NOTE | 2020-08-07 07:40 | Emergency Room Report ---
History of Present Illness General Chief Complaint: Upper Respiratory Illness Source: Patient Present Illness HPI Disclaimer: Please note that this report is being documented using DRAGON technology. This can lead to erroneous entry secondary to incorrect interpretation by the dictating instrument. HPI: 45-year-old female presents for evaluation of persistent cough. Tested positive for COVID-19 in June with subsequent negative test. Denies fever or chills. Reports persistent intermittent cough. Occasionally productive though not currently. Denies nausea or vomiting. Denies shortness of breath or sore throat. Denies headache or myalgias. No other symptoms. 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 EOMI. Resp: Normal work of breathing. No wheezing. No crackles. Skin: Intact. No abrasions, laceration or rash over the exposed skin MSK: Normal tone and bulk. Moving all extremities. No obvious deformity. Neuro: Awake and alert. Mentating appropriately Medical Decision Making Diagnostic Impression: Primary Impression: Cough ER Course 45-year-old female presents for evaluation of cough. Repeat x-ray does not show obvious infiltrate or other findings. Discussed pulmonology referral through her PMD. Stable for outpatient follow-up. Chest X-Ray Diagnostic Results Chest X-Ray Diagnostic Results : Chest X-Ray Ordered: Yes # of Views/Limited/Complete: 1 View Indication: Other - Cough EP Interpretation: Yes Interpretation: no consolidation, no effusion, no pneumothorax, no acute cardiopulmonary disease Impression: No acute disease Electronically Signed by: Electronically signed by Dr. Cabrera Jack MD Last Vital Signs Date Time Temp Pulse Resp B/P (MAP) Pulse Ox O2 Delivery O2 Flow Rate FiO2 08/07/20 07:21 99.7 93 20 117/78 (91) 96 Room Air Disposition: HOME, SELF-CARE Condition: Stable Scripts Benzonatate* (TESSALON PERLE*) 100 Mg Capsule 100 MG ORAL THREE TIMES A DAY, #30 PERLE Prov: Cabrera Jack MD 08/07/20 Cabrera Jack MD Aug 07, 2020 07:39
--- NOTE | 2020-08-07 07:40 | NUR ---
ED Nurse Note: pt stated that she needs a chest xray, still coughing since Jun when she was positive for covid
[2020-08-07] MEDS ORDERED: TESSALON PERLE100 MG ORAL (08:07)
--- NOTE | 2020-08-07 08:31 | NUR ---
ER DISCHARGE NOTE: Patient is cleared to be discharged per ERMD, pt is aox4, on room air, with stable vital signs. pt was given dc instructions, pt was able to verbalize understanding. pt is able to ambulate with steady gait. pt took all belongings.
--- NOTE | 2020-08-07 14:14 | Diagnostic Imaging Report ---
Indication: Cough Technique: One view of the chest Comparison: 06/30/2020 Findings: Lungs and pleural spaces are clear. Heart size is normal. No significant change Impression: No acute process
== END 2020-08-07 08:15 | disposition home or self-care (01) ==
LOC: EMR 07:44
DX: R05 Cough (principal); K21.9 Gastro-esophageal reflux disease without esophagitis
CPT/HCPCS: 71045; Z7502; 99283